=== PATIENT | female | born 1985 | race Hispanic/Latino ===

== ENCOUNTER → 2025-07-05 | Outpatient (CLI) | payer OTHER ==
[~2025-07-05] MED LIST: CYAN100049; THERTAB52 PO; VITA100093
== END ==
LOC: M WHC 08:37
PROVIDERS: ATTEND Specialist
DX: D69.3 Immune thrombocytopenic purpura (principal); N64.9 Disorder of breast, unspecified
CPT/HCPCS: 76642; 77066; G0279